=== PATIENT | male | born 1990 | race Two or more races ===

== ENCOUNTER 2020-01-17 22:01 | Inpatient (IN) | payer MEDICAID, OTHER ==
[~2020-01-17] VITALS: Ht 172.7 cm; Wt 84.6 kg
--- NOTE | 2020-01-17 22:10 | NUR ---
PT BIB HIS MOTHER WITH A C/O ABD PAIN AFTER EATING HEBREW FOOD AROUND 12PM. PT WAS NOT ABLE TO KEEP DOWN FOOD OR FLUIDS. PT WAS CONNECTED TO THE MONITOR AND CONTINUOUS PULSE OX.
[2020-01-17] MEDS ORDERED: METOCLOPRAMIDE HCL 10 MG/2 ML VIAL IV ONE (22:30)
[2020-01-17] MEDS ORDERED: IV NS 0.9% 1,000 ML BAG IV ONE ×2 (22:30→23:30)
[2020-01-17] MEDS ORDERED: diphenhydrAMINE HCL 50 MG/ML VIAL IV ONE (22:30)
[2020-01-17] MEDS ORDERED: diphenhydrAMINE HCL 50 MG/ML VIAL ONE (22:38)
[2020-01-17] MEDS ORDERED: METOCLOPRAMIDE HCL 10 MG/2 ML VIAL ONE (22:38)
--- NOTE | 2020-01-17 22:45 | NUR ---
BLOOD WAS DRAWN AND SENT TO LAB. IV SITE IS NOT WORKING. IV REMOVED.
[2020-01-17 22:53] LABS: BASOPHILS # (AUTO) 0.1 /CMM (0.0-0.2); BASOPHILS % (AUTO) 0.6 % (0.0-2.0); EOSINOPHILS % (AUTO) 0.1 % (0.0-6.0); HEMATOCRIT 46 % (39-51); HEMOGLOBIN 14.9 g/dL (13.5-17.5); LYMPHOCYTES # (AUTO) 1.2 /CMM (0.8-4.8); LYMPHOCYTES % (AUTO) 8.6 % (20.0-44.0); MEAN CORPUSCULAR HGB CONC 33 g/dl (31.0-36.0); MEAN CORPUSCULAR VOLUME 85 fL (80-96); MONOCYTES # (AUTO) 0.4 /CMM (0.1-1.30); MONOCYTES % (AUTO) 2.8 % (2.0-12.0); NEUTROPHILS # (AUTO) 12.1 /CMM (1.8-8.9); NEUTROPHILS % (AUTO) 87.9 % (43.0-81.0); PLATELET COUNT (AUTO) 320 /CMM (150-450); WHITE BLOOD COUNT (AUTO) 13.7 K/uL (4.3-11.0)
[2020-01-17 23:01] LABS: CALCIUM, SERUM 9.7 mg/dL (8.5-10.1); POTASSIUM 4.4 mmol/L (3.5-5.1)
[2020-01-17 23:07] LABS: ALBUMIN 4.6 g/dL (3.4-5.0); BILIRUBIN,DIRECT 0.1 mg/dL (0.0-0.2); BILIRUBIN,TOTAL 0.4 mg/dL (0.2-1.0); TOTAL PROTEIN, SERUM 9.1 g/dL (6.4-8.2)
--- NOTE | 2020-01-17 23:10 | NUR ---
IV STARTED IN RT HAND BY JAYLA RN/CHG
--- NOTE | 2020-01-18 00:30 | NUR ---
PT APPEARS TO BE SLEEPING SOUNDLY WITH NO S/S OF PAIN OR DISTRESS. PT IS SLIGHTLY TACHY WITH HR @ 103. WILL CONTINUE TO MONITOR THE PT.
--- NOTE | 2020-01-18 01:14 | NUR ---
PT APPEARS TO BE SLEEPING SOUNDLY. PT'S SLIGHTLY TACHY WITH HR AT 114 WITH OCCASIONALLY INCREASING TO 120. MD NOTIFIED.
[2020-01-18] MEDS ORDERED: ONDANSETRON HCL/PF 4 MG/2 ML VIAL ONE ×2 (01:29→04:53)
[2020-01-18] MEDS ORDERED: ONDANSETRON HCL/PF 4 MG/2 ML VIAL IV ONE ×2 (01:30→05:00)
--- NOTE | 2020-01-18 01:35 | NUR ---
PT WOKE UP AND VOMITTED. MD NOTIFIED AND NEW ORDERS WERE GIVEN.
--- NOTE | 2020-01-18 02:00 | NUR ---
URINE SAMPLE OBTAINED AND SENT TO LAB.
[2020-01-18 03:20] LABS: APPEARANCE,URINE CLEAR (CLEAR); BILIRUBIN,URINE NEGATIVE (NEGATIVE); BLOOD, URINE NEGATIVE Ery/uL (NEGATIVE); COLOR,URINE YELLOW (YELLOW); KETONES,URINE NEGATIVE (NEGATIVE); LEUKOCYTE ESTERASE ,URINE NEGATIVE (NEGATIVE); NITRITE, URINE NEGATIVE (NEGATIVE); PROTEIN,URINE NEGATIVE (NEGATIVE); UGLUCOSE NEGATIVE (NEGATIVE); UROBILINOGEN,URINE 0.2 EU/dL (0.2)
--- NOTE | 2020-01-18 04:59 | NUR ---
PT STARTED VOMITTING. NOTIFIED. NEW ORDERS GIVEN AND CARRIED OUT.
--- NOTE | 2020-01-18 05:22 | NUR ---
PT APPEARS TO BE RESTING COMFORTABLY.
--- NOTE | 2020-01-18 05:51 | NUR ---
CALLED PT'S MOTHER, PER HIS REQUEST, TO UPDATE HER RE: PT BEING ADMITTED.
--- NOTE | 2020-01-18 06:01 | NUR ---
COVID SWAB DONE AND SENT TO LAB.
--- NOTE | 2020-01-18 06:54 | NUR ---
REC'D NEG COVID RESULTS FROM LAB
--- NOTE | 2020-01-18 07:40 | NUR ---
CALLED FOR GPS BED.
--- NOTE | 2020-01-18 09:14 | NUR ---
NURSING SUP GAVE M/S BED 204-1.
--- NOTE | 2020-01-18 09:40 | NUR ---
REPORT GIVEN TO YOGESH RUDD FOR [facility].
--- NOTE | 2020-01-18 09:50 | NUR ---
MS RN NOTES PATIENT ARRIVED TO UNIT VIA GURNEY, WITH ACLS PROTOCOLS. PATIENT ALERT AND ORIENTED X 4. ON ROOM AIR WITH NO SIGNS OF RESPIRATORY DISTRESS AT THIS TIME, WITH EVEN NON-LABORED BREATHING AND NO SOB PRESENT AT THIS TIME. PATIENT DENIES PAIN OR DISCOMFORT AT THIS TIME. IV ACCESS INTACT AND PATENT ON RIGHT HAND 20 GAUGE. SKIN WARM AND DRY TO TOUCH. PROVIDED COMFORT MEASURES TO PATIENT. SAFETY PRECAUTIONS IMPLEMENTED WITH BED LOCKED, BILATERAL SIDE RAILS UP, BED IN THE LOWEST POSITION AND CALL LIGHT WITHIN EASY REACH OF THE PATIENT. WILL CONTINUE TO MONITOR PATIENT.
[2020-01-18] MEDS ORDERED: HYDROCODONE/APAP 5/325MG 1 EACH TABLET PO PRN (12:00)
[2020-01-18] MEDS ORDERED: MAGNESIUM HYDROXIDE 30 ML UDC PO PRN (12:00)
[2020-01-18] MEDS ORDERED: MAG HYDROX/AL HYDROX/SIMETH 30 ML UDC PO PRN (12:00)
[2020-01-18] MEDS ORDERED: MORPHINE SULFATE INJ 2 MG/ML DISP.SYRIN IV PRN (12:00)
[2020-01-18] MEDS ORDERED: ZOLPIDEM TARTRATE 5 MG TABLET PO PRN (12:00)
[2020-01-18] MEDS ORDERED: Z GUARD REMEDY 2 OZ OINT TP PRN (12:00)
[2020-01-18] MEDS ORDERED: ACETAMINOPHEN 325 MG TABLET PO PRN (12:00)
[2020-01-18] MEDS ORDERED: ONDANSETRON HCL/PF 4 MG/2 ML VIAL IVP PRN (12:00)
[2020-01-18] MEDS: IV D5/0.45 NACL 1,000 ML IV PRN ×2 (13:49→23:37)
[2020-01-18 16:00] VITALS: BP 133/78
--- NOTE | 2020-01-18 19:00 | NUR ---
MS RN NOTES PATIENT IN BED WATCHING TV. ON ROOM AIR WITH NO SIGNS OF RESPIRATORY DISTRESS WITH EVEN NON-LABORED BREATHING, AND WITH NO SOB NOTED. SKIN KEPT CLEAN AND DRY. IV ACCESS INTACT AND PATENT ON RIGHT HAND INFUSING D5 1/2 NORMAL SALINE AT 125ml/hr. PROVIDED COMFORT MEASURES TO PATIENT AND MET ALL OF PATIENT'S NEEDS. SAFETY PRECAUTIONS IMPLEMENTED WITH BED LOCKED, BILATERAL SIDE RAILS UP, BED IN THE LOWEST POSITION, AND CALL LIGHT WITHIN EASY REACH OF THE PATIENT. WILL ENDORSE PLAN OF CARE TO UPCOMING NIGHTSHIFT NURSE.
--- NOTE | 2020-01-18 19:15 | NUR ---
rn ms opening noted received patient in bed awake alert and oriented x 4, respirations even and unlabored with equal rise and fall of chest, denies any pain or discomfort at this time, no nausea or vomiting present at this time. iv site to right hand #20 g intact and patent, no redness, no infiltration present, ivf running as ordered, oriented to staff and call light and kept within reach, all needs attended at this time, will continue to monitor and attend to needs.
[2020-01-18 20:00] VITALS: BP 131/67
[2020-01-18 20:23] VITALS: BP 131/67
--- NOTE | 2020-01-19 05:17 | NUR ---
rn ms notes received call from lab for covid results NEGATIVE.
[2020-01-19 06:57] LABS: BASOPHILS # (AUTO) 0.1 /CMM (0.0-0.2); BASOPHILS % (AUTO) 1.1 % (0.0-2.0); EOSINOPHILS % (AUTO) 4.5 % (0.0-6.0); HEMATOCRIT 41 % (39-51); HEMOGLOBIN 13.3 g/dL (13.5-17.5); LYMPHOCYTES # (AUTO) 3.8 /CMM (0.8-4.8); LYMPHOCYTES % (AUTO) 49.1 % (20.0-44.0); MEAN CORPUSCULAR HGB CONC 33 g/dl (31.0-36.0); MEAN CORPUSCULAR VOLUME 84 fL (80-96); MONOCYTES # (AUTO) 0.6 /CMM (0.1-1.30); MONOCYTES % (AUTO) 7.5 % (2.0-12.0); NEUTROPHILS # (AUTO) 2.9 /CMM (1.8-8.9); NEUTROPHILS % (AUTO) 37.8 % (43.0-81.0); PLATELET COUNT (AUTO) 296 /CMM (150-450); RED BLOOD CELL COUNT(AUTO) 4.83 MIL/uL (4.5-6.0); WHITE BLOOD COUNT (AUTO) 7.7 K/uL (4.3-11.0)
[2020-01-19 06:59] LABS: ALBUMIN 3.7 g/dL (3.4-5.0); BILIRUBIN,DIRECT 0.1 mg/dL (0.0-0.2); BILIRUBIN,TOTAL 0.6 mg/dL (0.2-1.0); CALCIUM, SERUM 8.7 mg/dL (8.5-10.1); CREATININE 0.8 mg/dL (0.6-1.3); MAGNESIUM 2.1 mg/dL (1.8-2.4); PHOSPHORUS 3.6 mg/dL (2.5-4.9); POTASSIUM 3.4 mmol/L (3.5-5.1); TOTAL PROTEIN, SERUM 7.4 g/dL (6.4-8.2)
--- NOTE | 2020-01-19 07:03 | NUR ---
rn ms closing notes patient in bed sleeping easily arousable, alert and oriented x 4, respirations even and unlabored with equal rise and fall of chest, denies any pain or discomfort at this time, no nausea or vomiting present at this time no complaints of abdomen pain throughout shift. iv site to right hand #20 g intact and patent, no redness, no infiltration present, ivf running as ordered, call light kept within reach, all needs attended at this time, will continue to monitor and attend to needs and endorse to next shift.
[2020-01-19 08:00] VITALS: BP 139/73
--- NOTE | 2020-01-19 08:00 | NUR ---
RN NOTES RECEIVED PATIENT IN THE BED SLEEPING, AROUSE WHEN CALLED NAME OR TOUCHED, NO ACUTE RESPIRATORY DISTRESS, V/S STABLE. INFUSING D 51/2 NS AT 125 ML/HR INTACT. CALL LIGHT WITHIN TO REACH. CONTINUED MONITORING.
[2020-01-19] MEDS ORDERED: PANTOPRAZOLE 40 MG VIAL IV SCH (09:00)
--- NOTE | 2020-01-19 09:00 | NUR ---
RN NOTES PATIENT AWAKE , REFUSED PAIN, ADMINISTERED SCHEDULED MEDICATION, TOLERATED BREAKFAST 100 %, REFUSED PAIN, PATIENT USING BATHROOM. CALL LIGHT WITHIN TO REACH, CONTINUED MONITORING.
[2020-01-19] MEDS: IV D5/0.45 NACL 1,000 ML IV PRN (10:56)
[2020-01-19] MEDS ORDERED: POTASSIUM CHLORIDE 20 MEQ POWDER PACKET PO SCH (11:00)
--- NOTE | 2020-01-19 13:00 | NUR ---
RN NOTES SEEN PATIENT BY HOSPITALIST Dr SALINAS PATIENT WILL DISCHARGE HOME .
[2020-01-19 15:59] VITALS: BP 135/86
--- NOTE | 2020-01-19 17:10 | NUR ---
[employer] SUPERVISOR NOTES PATIENT DISCHARGE AT THIS TIME GOING HOME SELF CARE. MED RECONCILIATION AND DISCHARGE NOTES REVIEWED AND EXPLAINED TO THE PATIENT. PATIENT VERBALIZED UNDERSTANDING. PATIENT WILL FOLLOW PRIMARY MD. PATIENT SIGN PAPERWORK. BELONGING WITH HE PATIENT. ESCORTED PATIENT TO THE LOBBY FOR SAFETY. PATIENT MUTUEL CASHIER BY BROTHER PHONE # [phone].
== END 2020-01-19 17:15 | disposition home or self-care (01) | DRG 249 ==
LOC: ER 22:09 → MEDSG2 01-18 09:20
PROVIDERS: ADMIT Student in an Organized Health Care Education/Training Program; ATTEND Student in an Organized Health Care Education/Training Program
DX: A08.4 Viral intestinal infection, unspecified (principal); I49.9 Cardiac arrhythmia, unspecified; I44.30 Unspecified atrioventricular block; T45.0X5A Adverse effect of antiallergic and antiemetic drugs, initial encounter; Y92.009 Unspecified place in unspecified non-institutional (private) residence as the place of occurrence of the external cause; R74.0 Nonspecific elevation of levels of transaminase and lactic acid dehydrogenase [LDH]; D72.829 Elevated white blood cell count, unspecified
CPT/HCPCS: 36415; 80048-TC; 80061-TC; 80076-TC; 80305; 81000-TC; 83690-TC; 83735-TC; 84100-TC; 85025-TC; 87081-TC; C9113; G0378; J1200; J2405; J2765; J3490; J7030; J7042; U0003-CS

== ENCOUNTER 2020-03-25 18:20 | Inpatient (IN) | payer OTHER ==
[~2020-03-25] VITALS: Ht 172.7 cm; Wt 79.4 kg
[2020-03-25] MEDS ORDERED: ONDANSETRON HCL/PF 4 MG/2 ML VIAL IVP ONE (19:00)
[2020-03-25] MEDS ORDERED: IV NS 0.9% 1,000 ML BAG IV ONE ×2 (19:00→22:00)
[2020-03-25] MEDS ORDERED: KETOROLAC TROMETHAMINE INJ 30 MG/ML VIAL IV ONE (19:00)
[2020-03-25] MEDS ORDERED: KETOROLAC TROMETHAMINE INJ 30 MG/ML VIAL ONE (19:21)
[2020-03-25] MEDS ORDERED: ONDANSETRON HCL/PF 4 MG/2 ML VIAL ONE ×2 (19:21→21:14)
--- NOTE | 2020-03-25 19:28 | NUR ---
BIBSELF C/O NAUSEA AND VOMITING SINCE NOONTIME TODAY, ALSO C/O HEADACHE AND DIZZINESS. PT AAOX4, VSS. RR EVEN & UNLABORED. DENIES CP, SOB, DIZZINESS AT THIS TIME. PT SEEN & EVAL'D BY MARTÍNEZ TEJEDA. MEDICATED ORDERED, PT MARCO WELL. WILL CONT TO MONITOR.
[2020-03-25 19:34] LABS: BASOPHILS % (AUTO) 0.4 % (0.0-2.0); EOSINOPHILS % (AUTO) 0.1 % (0.0-6.0); HEMATOCRIT 47 % (39-51); HEMOGLOBIN 15.2 g/dL (13.5-17.5); LYMPHOCYTES % (AUTO) 8.5 % (20.0-44.0); MEAN CORPUSCULAR HGB CONC 32 g/dl (31.0-36.0); MEAN CORPUSCULAR VOLUME 85 fL (80-96); MONOCYTES # (AUTO) 0.3 /CMM (0.1-1.30); PLATELET COUNT (AUTO) 352 /CMM (150-450); RED BLOOD CELL COUNT(AUTO) 5.54 MIL/uL (4.5-6.0); WHITE BLOOD COUNT (AUTO) 11.4 K/uL (4.3-11.0)
[2020-03-25 19:42] LABS: CALCIUM, SERUM 9.6 mg/dL (8.5-10.1); CREATININE 0.9 mg/dL (0.6-1.3); POTASSIUM 4.1 mmol/L (3.5-5.1)
[2020-03-25 19:56] LABS: ALBUMIN 4.6 g/dL (3.4-5.0); BILIRUBIN,DIRECT 0.1 mg/dL (0.0-0.2); BILIRUBIN,TOTAL 0.3 mg/dL (0.2-1.0); TOTAL PROTEIN, SERUM 9.1 g/dL (6.4-8.2)
[2020-03-25] MEDS ORDERED: ONDANSETRON HCL/PF 4 MG/2 ML VIAL IV ONE (21:00)
--- NOTE | 2020-03-25 21:20 | NUR ---
MEDICATED FOR N/V, PT MARCO WELL. URINE COLLECTED & SENT TO LAB.
[2020-03-25 21:30] LABS: APPEARANCE,URINE Clear (CLEAR); BILIRUBIN,URINE Negative (NEGATIVE); BLOOD, URINE Trace-intact Ery/uL (NEGATIVE); COLOR,URINE Yellow (YELLOW); KETONES,URINE Negative (NEGATIVE); LEUKOCYTE ESTERASE ,URINE Negative (NEGATIVE); NITRITE, URINE Negative (NEGATIVE); PH,URINE 8.5 (5.0-8.0); PROTEIN,URINE 30 mg/dl (NEGATIVE); UGLUCOSE Negative (NEGATIVE); UROBILINOGEN,URINE 0.2 EU/dL (0.2)
[2020-03-25 22:06] LABS: BACTERIA,URINE Rare /HPF (None Seen); SQUAMOUS EPITHELIAL CELL,UR Few /HPF (None Seen); WBC,URINE NONE SEEN /HPF (0-3)
--- NOTE | 2020-03-25 23:22 | NUR ---
PT STILL C/O NAUSEA, MARTÍNEZ TEJEDA AWARE.
--- NOTE | 2020-03-25 23:32 | NUR ---
COVID TEST DONE & SENT TO LAB.
[2020-03-26] MEDS ORDERED: ONDANSETRON HCL/PF 4 MG/2 ML VIAL IVP PRN
--- NOTE | 2020-03-26 00:20 | NUR ---
PT AMBULATED TO THE RESTROOM
--- NOTE | 2020-03-26 00:46 | NUR ---
LAB CALLED REGARDING NEGATIVE COVID RESULT.
--- NOTE | 2020-03-26 02:08 | NUR ---
REPORT GIVEN TO YOGESH ARANDA FOR G[facility]
--- NOTE | 2020-03-26 02:15 | NUR ---
MS RN NOTES RECEIVED PT VIA [facility], PT WAS ABLE TO AMBULATE TO BED. A/O X4. STABLE ON RA, NO SOB/ ACUTE RESPIRATORY DISTRESS NOTED. IV IN R AC#20G IS PATENT AND INTACT. PT DENIES ANY PAIN. BED IS IN LOWEST LOCKED POSITION WITH SIDE RAILS UP X2, SEMI FOWLERS. CALL LIGHT IS WITHIN REACH. WILL CONTINUE TO MONITOR. VITALS ON ADMISSION: BP 152/92 HR 100 O2: 99% TEMP 97.5 RR 20 PAIN 0
[2020-03-26] MEDS: IV D5/0.45 NACL 1,000 ML IV PRN ×2 (02:37→13:27)
[2020-03-26 04:00] VITALS: BP 154/80
--- NOTE | 2020-03-26 06:37 | NUR ---
MS RN CLOSE NOTES PATIENT IS SITTING UP IN BED. A/O X4. ON RA, NO SOB/ ACUTE RESPIRATORY DISTRESS NOTED. IV IN R AC#20G IS PATENT AND INTACT RUNNING D5 1/2 NS @100MLS/HR. APPEARS COMFORTABLE/ NO COMPLAINTS OF PAIN AT THE MOMENT. BED IS IN LOWEST LOCKED POSITION WITH SIDE RAILS UP X2, SEMI FOWLERS. CALL LIGHT IS WITHIN REACH. WILL ENDORSE TO AM NURSE.
[2020-03-26 07:36] LABS: BASOPHILS % (AUTO) 0.3 % (0.0-2.0); HEMATOCRIT 45 % (39-51); HEMOGLOBIN 14.4 g/dL (13.5-17.5); LYMPHOCYTES # (AUTO) 1.9 /CMM (0.8-4.8); LYMPHOCYTES % (AUTO) 16.3 % (20.0-44.0); MEAN CORPUSCULAR HGB CONC 32 g/dl (31.0-36.0); MEAN CORPUSCULAR VOLUME 85 fL (80-96); MONOCYTES # (AUTO) 1.1 /CMM (0.1-1.30); MONOCYTES % (AUTO) 9.2 % (2.0-12.0); NEUTROPHILS # (AUTO) 8.5 /CMM (1.8-8.9); NEUTROPHILS % (AUTO) 74.2 % (43.0-81.0); PLATELET COUNT (AUTO) 334 /CMM (150-450); RED BLOOD CELL COUNT(AUTO) 5.23 MIL/uL (4.5-6.0); WHITE BLOOD COUNT (AUTO) 11.4 K/uL (4.3-11.0)
--- NOTE | 2020-03-26 07:46 | NUR ---
MS RN OPENING NOTES PATIENT IS SLEEPING IN BED WITH NO SIGNS OF DISTRESS IN ROOM AIR. IV L AC #20G INTACT RUNNING D5 1/2 NS AT 100 ML/HR. SAFETY MEASURES ARE APPLIED, BED IS IN LOCK AND LOW POSITION. SIDE RAILS UP X 2 FOR SAFETY. CALL LIGHT WITHIN REACH WILL CONTINUE TO MONITOR.
[2020-03-26 08:00] VITALS: BP 125/71
[2020-03-26 08:04] LABS: CALCIUM, SERUM 8.9 mg/dL (8.5-10.1); CREATININE 0.9 mg/dL (0.6-1.3); MAGNESIUM 2.1 mg/dL (1.8-2.4); PHOSPHORUS 3.8 mg/dL (2.5-4.9); POTASSIUM 3.2 mmol/L (3.5-5.1)
[2020-03-26] MEDS ORDERED: ONDA4TAB5 PO (08:04)
[2020-03-26] MEDS ORDERED: IBUP-1492 PO (08:04)
[2020-03-26] MEDS ORDERED: OMEP20CA15 PO (08:04)
[2020-03-26 08:15] LABS: THYROID STIMULATING HORMONE 1.141 uIU/mL (0.358-3.74)
[2020-03-26] MEDS ORDERED: PANTOPRAZOLE 40 MG VIAL IV SCH (09:00)
[2020-03-26] MEDS: POTASSIUM CL. PREMIX PERIPHER. 50 ML IV SCH ×4 (10:54→14:30)
[2020-03-26] MEDS ORDERED: POLYVINYL ALCOHOL 15 ML BOTTLE EACHEYE PRN (11:30)
[2020-03-26 16:00] VITALS: BP 142/75
--- NOTE | 2020-03-26 18:15 | NUR ---
DISCHARGE NOTE PATIENT VITALS ARE WITHIN NORMAL LIMIT. NO SIGNS OF DISTRESS IN ROOM AIR DENIED ANY SHORTNESS OF BREATH. NO SIGNS OF NAUSEA AND VOMITING. IV WAS REMOVED WITH NO SIGNS OF BLEEDING. DISCHARGE INSTRUCTIONS WERE EXPLAINED AND HE VERBALLY UNDERSTOOD TEACH BACK. BELONGING LIST WAS COMPLETED AND SIGNED. PATIENT LEFT VIA AMBULATORY TO THE LOBBY WITH STEADY GAIT ACCOMPANIED BY ME . GOT PICKED UP BY PERSONAL VEHICLE.
== END 2020-03-26 18:15 | disposition home or self-care (01) | DRG 241 ==
LOC: ER 18:25 → MED 03-26 01:53
PROVIDERS: ATTEND Nurse Practitioner Acute Care
DX: K29.70 Gastritis, unspecified, without bleeding (principal); D72.829 Elevated white blood cell count, unspecified; E86.0 Dehydration; E87.6 Hypokalemia
CPT/HCPCS: 36415; 80048-TC; 80061-TC; 80076-TC; 80305; 81000-TC; 83690-TC; 83735-TC; 84100-TC; 84443-TC; 85025-TC; 87081-TC; C9113; C9803-CS; G0378; J1885; J2405; J3480; J3490; J7030; J7050

== ENCOUNTER 2020-03-29 21:12 | Emergency (ER) | payer OTHER ==
[~2020-03-29] VITALS: Ht 172.7 cm; Wt 72.6 kg
[~2020-03-29 21:12] MED LIST: OMEP20CA15 PO; ONDA4TAB5 PO
--- NOTE | 2020-03-29 21:52 | NUR ---
PT AAOX4. BIBSELF C/O VOMITING. HX HIATAL HERNIA. PT PLACED IN BED 11 ON MONITOR AND PULSE OX. LINE INTIIATED LW 20G, BLOOD SENT TO LAB.
[2020-03-29] MEDS ORDERED: ONDANSETRON HCL/PF 4 MG/2 ML VIAL ONE (22:20)
[2020-03-29] MEDS ORDERED: IV NS 0.9% 1,000 ML BAG IV ONE (22:30)
[2020-03-29] MEDS ORDERED: ONDANSETRON HCL/PF 4 MG/2 ML VIAL IVP ONE (22:30)
[2020-03-29 22:45] LABS: BASOPHILS % (AUTO) 0.4 % (0.0-2.0); EOSINOPHILS % (AUTO) 0.6 % (0.0-6.0); HEMATOCRIT 46 % (39-51); LYMPHOCYTES # (AUTO) 2.6 /CMM (0.8-4.8); LYMPHOCYTES % (AUTO) 25.4 % (20.0-44.0); MEAN CORPUSCULAR HGB CONC 33 g/dl (31.0-36.0); MEAN CORPUSCULAR VOLUME 85 fL (80-96); MONOCYTES # (AUTO) 0.8 /CMM (0.1-1.30); NEUTROPHILS # (AUTO) 6.7 /CMM (1.8-8.9); NEUTROPHILS % (AUTO) 65.6 % (43.0-81.0); PLATELET COUNT (AUTO) 344 /CMM (150-450); RED BLOOD CELL COUNT(AUTO) 5.39 MIL/uL (4.5-6.0); WHITE BLOOD COUNT (AUTO) 10.2 K/uL (4.3-11.0)
[2020-03-29 22:46] LABS: APPEARANCE,URINE Clear (CLEAR); BILIRUBIN,URINE Negative (NEGATIVE); BLOOD, URINE Negative Ery/uL (NEGATIVE); COLOR,URINE Yellow (YELLOW); KETONES,URINE Negative (NEGATIVE); LEUKOCYTE ESTERASE ,URINE Negative (NEGATIVE); NITRITE, URINE Negative (NEGATIVE); PH,URINE 6.5 (5.0-8.0); PROTEIN,URINE Negative (NEGATIVE); UGLUCOSE Negative (NEGATIVE); UROBILINOGEN,URINE 0.2 EU/dL (0.2)
[2020-03-29 22:54] LABS: CALCIUM, SERUM 9.3 mg/dL (8.5-10.1); CREATININE 0.9 mg/dL (0.6-1.3); POTASSIUM 3.8 mmol/L (3.5-5.1)
[2020-03-29 23:00] LABS: ALBUMIN 4.2 g/dL (3.4-5.0); BILIRUBIN,DIRECT 0.1 mg/dL (0.0-0.2); BILIRUBIN,TOTAL 0.6 mg/dL (0.2-1.0); TOTAL PROTEIN, SERUM 8.4 g/dL (6.4-8.2)
--- NOTE | 2020-03-29 23:23 | NUR ---
Patient discharged to home in stable condition. Written and verbal after care instructions given. Patient verbalizes understanding of instruction and RX. IV removed. Catheter intact and site benign. Pressure and 4x4 applied to site. No bleeding noted.
[2020-03-29 23:24] VITALS: BP 111/75
== END 2020-03-29 23:25 | disposition home or self-care (01) ==
LOC: ER 21:14
DX: K29.60 Other gastritis without bleeding (principal); R11.2 Nausea with vomiting, unspecified; Z98.890 Other specified postprocedural states; Z79.899 Other long term (current) drug therapy
CPT/HCPCS: 36415; 80048; 80076; 80305; 81001; 83690; 85025; 96361; 96374; 99283; J2405; J7030; 81000-TC

== ENCOUNTER 2020-07-09 20:15 | Emergency (ER) | payer OTHER ==
[~2020-07-09] VITALS: Ht 172.7 cm; Wt 70.3 kg
[2020-07-09 20:58] LABS: BASOPHILS # (AUTO) 0.1 /CMM (0.0-0.2); BASOPHILS % (AUTO) 0.7 % (0.0-2.0); EOSINOPHILS % (AUTO) 0.4 % (0.0-6.0); HEMATOCRIT 47 % (39-51); HEMOGLOBIN 15.2 g/dL (13.5-17.5); LYMPHOCYTES # (AUTO) 1.2 /CMM (0.8-4.8); LYMPHOCYTES % (AUTO) 10.3 % (20.0-44.0); MEAN CORPUSCULAR HGB CONC 33 g/dl (31.0-36.0); MEAN CORPUSCULAR VOLUME 85 fL (80-96); MONOCYTES # (AUTO) 0.3 /CMM (0.1-1.30); MONOCYTES % (AUTO) 2.6 % (2.0-12.0); NEUTROPHILS # (AUTO) 9.6 /CMM (1.8-8.9); PLATELET COUNT (AUTO) 385 /CMM (150-450); RED BLOOD CELL COUNT(AUTO) 5.51 MIL/uL (4.5-6.0); WHITE BLOOD COUNT (AUTO) 11.2 K/uL (4.3-11.0)
[2020-07-09] MEDS ORDERED: FAMOTIDINE/PF INJ 20 MG/2 ML VIAL IV ONE ×2 (20:58→21:00)
[2020-07-09] MEDS ORDERED: ONDANSETRON HCL/PF 4 MG/2 ML VIAL ONE (20:58)
[2020-07-09] MEDS ORDERED: ONDANSETRON HCL/PF 4 MG/2 ML VIAL IVP ONE (21:00)
[2020-07-09] MEDS ORDERED: IV NS 0.9% 1,000 ML BAG IV ONE (21:00)
[2020-07-09 21:26] LABS: ALBUMIN 4.5 g/dL (3.4-5.0); BILIRUBIN,DIRECT 0.1 mg/dL (0.0-0.2); BILIRUBIN,TOTAL 0.4 mg/dL (0.2-1.0); CALCIUM, SERUM 9.3 mg/dL (8.5-10.1); CREATININE 0.8 mg/dL (0.6-1.3); POTASSIUM 4.1 mmol/L (3.5-5.1); TOTAL PROTEIN, SERUM 9.2 g/dL (6.4-8.2)
[2020-07-09 21:58] LABS: BILIRUBIN,URINE Negative (NEGATIVE); COLOR,URINE YELLOW (YELLOW); LEUKOCYTE ESTERASE ,URINE Negative (NEGATIVE); NITRITE, URINE Negative (NEGATIVE); PH,URINE 8.5 (5.0-8.0); PROTEIN,URINE 100 mg/dl (NEGATIVE); UGLUCOSE Negative (NEGATIVE); UROBILINOGEN,URINE 0.2 EU/dL (0.2)
[2020-07-09 22:03] LABS: BACTERIA,URINE Rare /HPF (None Seen); RBC,URINE NONE SEEN /HPF (0-2); SQUAMOUS EPITHELIAL CELL,UR Few /HPF (None Seen); WBC,URINE NONE SEEN /HPF (0-3)
--- NOTE | 2020-07-09 22:15 | NUR ---
IV removed. Catheter intact and site benign. Pressure and 4x4 applied to site. No bleeding noted. Patient discharged to home in stable condition. Written and verbal after care instructions given. Patient verbalizes understanding of instruction. ambulatory with a steady gait
[2020-07-09 22:16] VITALS: BP 127/78
== END 2020-07-09 22:16 | disposition home or self-care (01) ==
LOC: ER 20:24
DX: K29.70 Gastritis, unspecified, without bleeding (principal); F14.90 Cocaine use, unspecified, uncomplicated; R11.2 Nausea with vomiting, unspecified; R19.7 Diarrhea, unspecified; Z20.822 Contact with and (suspected) exposure to COVID-19; D72.829 Elevated white blood cell count, unspecified; K44.9 Diaphragmatic hernia without obstruction or gangrene
CPT/HCPCS: 36415; 80048; 80076; 80307; 81001; 83690; 85025; 96361; 96374; 96375; 99284; C9803; J2405; J3490; J7030; U0003

== ENCOUNTER 2020-07-11 21:29 | Inpatient (IN) | payer OTHER ==
[~2020-07-11] VITALS: Ht 172.7 cm; Wt 68.0 kg
--- NOTE | 2020-07-11 22:52 | NUR ---
PT BIBSELF C/O HEMATEMESIS X3 DAYS. PT STATED HE NOTICED BLOOD IN HIS VOMIT TODAY. PLACED IN BED 4 ON MONITOR AND PULSE OX. LINE ESTABLISHED IN LAC 18G, BLOOD COLLECTED, SENT TO LAB. AWAITING MD ORDERS.
[2020-07-11] MEDS ORDERED: PANTOPRAZOLE 40 MG VIAL ONE (23:13)
[2020-07-11] MEDS ORDERED: ONDANSETRON HCL/PF 4 MG/2 ML VIAL ONE (23:13)
[2020-07-11] MEDS ORDERED: IV NS 0.9% 1,000 ML BAG IV ONE (23:30)
[2020-07-11] MEDS ORDERED: PANTOPRAZOLE 40 MG VIAL IV ONE (23:30)
[2020-07-11] MEDS ORDERED: ONDANSETRON HCL/PF 4 MG/2 ML VIAL IVP ONE (23:30)
[2020-07-11 23:37] LABS: BASOPHILS # (AUTO) 0.1 /CMM (0.0-0.2); BASOPHILS % (AUTO) 0.5 % (0.0-2.0); EOSINOPHILS % (AUTO) 0.3 % (0.0-6.0); HEMATOCRIT 45 % (39-51); HEMOGLOBIN 14.9 g/dL (13.5-17.5); LYMPHOCYTES # (AUTO) 1.2 /CMM (0.8-4.8); LYMPHOCYTES % (AUTO) 10.9 % (20.0-44.0); MEAN CORPUSCULAR HGB CONC 33 g/dl (31.0-36.0); MEAN CORPUSCULAR VOLUME 85 fL (80-96); MONOCYTES # (AUTO) 0.4 /CMM (0.1-1.30); MONOCYTES % (AUTO) 3.3 % (2.0-12.0); NEUTROPHILS # (AUTO) 9.4 /CMM (1.8-8.9); PLATELET COUNT (AUTO) 354 /CMM (150-450); RED BLOOD CELL COUNT(AUTO) 5.37 MIL/uL (4.5-6.0); WHITE BLOOD COUNT (AUTO) 11.1 K/uL (4.3-11.0)
--- NOTE | 2020-07-11 23:41 | NUR ---
CALLED LAB FOR COVID SWAB
[2020-07-11 23:56] LABS: ALBUMIN 4.2 g/dL (3.4-5.0); BILIRUBIN,DIRECT 0.2 mg/dL (0.0-0.2); BILIRUBIN,TOTAL 0.5 mg/dL (0.2-1.0); CALCIUM, SERUM 9.1 mg/dL (8.5-10.1); CREATININE 0.9 mg/dL (0.6-1.3); TOTAL PROTEIN, SERUM 8.6 g/dL (6.4-8.2)
[2020-07-12 00:07] LABS: BILIRUBIN,URINE NEGATIVE (NEGATIVE); COLOR,URINE YELLOW (YELLOW); LEUKOCYTE ESTERASE ,URINE NEGATIVE (NEGATIVE); NITRITE, URINE NEGATIVE (NEGATIVE); PH,URINE 8.5 (5.0-8.0); PROTEIN,URINE NEGATIVE (NEGATIVE); UGLUCOSE NEGATIVE (NEGATIVE)
[2020-07-12 00:16] LABS: BACTERIA,URINE 1+ /HPF (None Seen); MUCUS,URINE Few /LPF (None Seen); RBC,URINE 0-2 /HPF (0-2); SQUAMOUS EPITHELIAL CELL,UR Few /HPF (None Seen); URINE AMORPHOUS PHOSPHATES Many /HPF (None Seen); WBC,URINE 0-2 /HPF (0-3)
[2020-07-12] MEDS ORDERED: MAGNESIUM HYDROXIDE 30 ML UDC PO PRN (01:00)
[2020-07-12] MEDS ORDERED: Z GUARD REMEDY 2 OZ OINT TP PRN (01:00)
[2020-07-12] MEDS ORDERED: MAG HYDROX/AL HYDROX/SIMETH 30 ML UDC PO PRN (01:00)
[2020-07-12] MEDS ORDERED: TEMAZEPAM 15 MG CAPSULE PO PRN (01:00)
[2020-07-12] MEDS ORDERED: ACETAMINOPHEN 325 MG TABLET PO PRN (01:00)
[2020-07-12] MEDS: PANTOPRAZOLE 40 MG VIAL IV SCH ×3 (01:00→21:24)
[2020-07-12] MEDS ORDERED: ONDANSETRON HCL/PF 4 MG/2 ML VIAL IVP PRN (01:00)
[2020-07-12] MEDS ORDERED: LORAZEPAM INJ 2 MG/ML VIAL IV PRN (01:00)
[2020-07-12] MEDS ORDERED: MORPHINE SULFATE INJ 2 MG/ML DISP.SYRIN IV PRN (01:00)
[2020-07-12] MEDS: IV NS 0.9% 1,000 ML IV PRN ×2 (02:20→09:00)
--- NOTE | 2020-07-12 02:20 | NUR ---
PT ASLEEP, VSS.
--- NOTE | 2020-07-12 04:22 | NUR ---
PT REMAINS ASLEEP, VITALS STABLE.
--- NOTE | 2020-07-12 07:22 | NUR ---
REPORT GIVEN TO DEBRA ZUÑIGA FOR [facility]
--- NOTE | 2020-07-12 07:29 | NUR ---
RECEIVED REPORT FROM YOGESH MARTINS. PT IS ASLEEP ON BED EASILY AROUSABLE, NOT IN RESPIRATORY DISTRESS, VS STABLE, KEPT RESTED AND COMFORTABLE. AWAITING ROOM FOR TRANSFER.
[2020-07-12] MEDS: HYDROCODONE/APAP 5/325MG TABLET PO PRN (08:00)
[2020-07-12] MEDS ORDERED: HYDROCODONE/APAP 5/325MG TABLET ONE (08:01)
[2020-07-12] MEDS ORDERED: PANTOPRAZOLE 40 MG VIAL ONE ×2 (09:18→21:20)
--- NOTE | 2020-07-12 13:30 | NUR ---
pt seen by dr harry per dr. harry advance diet as tolerated.
--- NOTE | 2020-07-12 13:45 | NUR ---
pt tolerate lunch well. ate 80% of clear liquid diet provided. will advance diet to soft diet for dinner
--- NOTE | 2020-07-12 21:54 | NUR ---
PT AMBULATED TO THE RESTROOM, VSS.
--- NOTE | 2020-07-13 04:07 | NUR ---
PT NOTED ASLEEP, REMAINS ON MONITOR, AND PULSE OX.VSS.
[2020-07-13 04:41] LABS: BASOPHILS # (AUTO) 0.1 /CMM (0.0-0.2); BASOPHILS % (AUTO) 0.9 % (0.0-2.0); EOSINOPHILS % (AUTO) 2.8 % (0.0-6.0); HEMATOCRIT 41 % (39-51); HEMOGLOBIN 13.6 g/dL (13.5-17.5); LYMPHOCYTES # (AUTO) 4.2 /CMM (0.8-4.8); LYMPHOCYTES % (AUTO) 49.8 % (20.0-44.0); MEAN CORPUSCULAR HGB CONC 33 g/dl (31.0-36.0); MEAN CORPUSCULAR VOLUME 84 fL (80-96); MONOCYTES # (AUTO) 0.7 /CMM (0.1-1.30); MONOCYTES % (AUTO) 8.6 % (2.0-12.0); NEUTROPHILS # (AUTO) 3.2 /CMM (1.8-8.9); NEUTROPHILS % (AUTO) 37.9 % (43.0-81.0); PLATELET COUNT (AUTO) 314 /CMM (150-450); WHITE BLOOD COUNT (AUTO) 8.5 K/uL (4.3-11.0)
[2020-07-13 04:44] LABS: CALCIUM, SERUM 8.5 mg/dL (8.5-10.1); CREATININE 0.8 mg/dL (0.6-1.3); MAGNESIUM 2.1 mg/dL (1.8-2.4); PHOSPHORUS 3.8 mg/dL (2.5-4.9)
[2020-07-13] MEDS: IV NS 0.9% 1,000 ML IV PRN (07:42)
[2020-07-13] MEDS ORDERED: PANTOPRAZOLE 40 MG VIAL ONE (07:53)
[2020-07-13] MEDS: HYDROCODONE/APAP 5/325MG TABLET PO PRN (07:55)
[2020-07-13] MEDS ORDERED: HYDROCODONE/APAP 5/325MG TABLET ONE (08:07)
[2020-07-13] MEDS: PANTOPRAZOLE 40 MG VIAL IV SCH (08:39)
--- NOTE | 2020-07-13 09:26 | NUR ---
pt tolerating regular food. denies n/v per dr. piero boss to go home.
[2020-07-13 10:01] VITALS: BP 128/71
== END 2020-07-13 10:03 | disposition home or self-care (01) | DRG 241 ==
LOC: ER 21:31 → OBSER 23:48 → OBSVTOIN 23:48 → TRANSITION 23:49
PROVIDERS: ADMIT Nurse Practitioner Acute Care
DX: K29.70 Gastritis, unspecified, without bleeding (principal); K22.6 Gastro-esophageal laceration-hemorrhage syndrome; D72.829 Elevated white blood cell count, unspecified; F17.200 Nicotine dependence, unspecified, uncomplicated; Z72.89 Other problems related to lifestyle; Z20.822 Contact with and (suspected) exposure to COVID-19
CPT/HCPCS: 36415; 80048-TC; 80076-TC; 81001; 83690-TC; 83735-TC; 84100-TC; 85025-TC; 86850-TC; 87081-TC; C9113; G0378; J2060; J2270; J2405; J7030

== ENCOUNTER 2020-10-23 09:26 | Emergency (ER) | payer OTHER ==
[~2020-10-23] VITALS: Ht 175.3 cm; Wt 72.6 kg
--- NOTE | 2020-10-23 09:50 | NUR ---
BIB GIRLFRIEND C/O CHEST PAIN NON RADIATING STARTED LAST NIGHT AND VOMITING FOR 2 DAYS. RATES PAIN 6/10. IN ROOM AIR AND DENIES SOB. RESPIRATION REGULAR AND UNLABORED. ATTACHED ON A MONITOR. WILL CONTINUE TO MONITOR THE PATIENT.
[2020-10-23] MEDS: HALOPERIDOL LACTATE INJ 5 MG/ML VIAL IM ONE (10:05)
[2020-10-23] MEDS ORDERED: HALOPERIDOL LACTATE INJ 5 MG/ML VIAL ONE (10:06)
[2020-10-23] MEDS ORDERED: ONDANSETRON HCL/PF 4 MG/2 ML VIAL ONE (10:07)
[2020-10-23] MEDS: ONDANSETRON HCL/PF 4 MG/2 ML VIAL IVP ONE (10:17)
[2020-10-23] MEDS: IV NS 0.9% 1,000 ML BAG IV ONE (10:17)
[2020-10-23 10:39] LABS: BASOPHILS # (AUTO) 0.1 /CMM (0.0-0.2); BASOPHILS % (AUTO) 0.4 % (0.0-2.0); EOSINOPHILS % (AUTO) 0.1 % (0.0-6.0); HEMATOCRIT 46 % (39-51); HEMOGLOBIN 15.5 g/dL (13.5-17.5); LYMPHOCYTES # (AUTO) 1.3 /CMM (0.8-4.8); LYMPHOCYTES % (AUTO) 9.1 % (20.0-44.0); MEAN CORPUSCULAR HGB CONC 33 g/dl (31.0-36.0); MEAN CORPUSCULAR VOLUME 83 fL (80-96); MONOCYTES # (AUTO) 1.1 /CMM (0.1-1.30); MONOCYTES % (AUTO) 7.4 % (2.0-12.0); NEUTROPHILS # (AUTO) 12.2 /CMM (1.8-8.9); PLATELET COUNT (AUTO) 314 /CMM (150-450); RED BLOOD CELL COUNT(AUTO) 5.58 MIL/uL (4.5-6.0); WHITE BLOOD COUNT (AUTO) 14.6 K/uL (4.3-11.0)
[2020-10-23 10:49] LABS: CALCIUM, SERUM 8.8 mg/dL (8.5-10.1); CREATININE 0.9 mg/dL (0.6-1.3); POTASSIUM 3.3 mmol/L (3.5-5.1)
[2020-10-23 10:55] LABS: ALBUMIN 4.3 g/dL (3.4-5.0); BILIRUBIN,DIRECT 0.1 mg/dL (0.0-0.2); BILIRUBIN,TOTAL 0.7 mg/dL (0.2-1.0); TOTAL PROTEIN, SERUM 9.1 g/dL (6.4-8.2)
--- NOTE | 2020-10-23 11:11 | NUR ---
'S NAME [facility] PHONE # [phone]
[2020-10-23] MEDS ORDERED: ONDA4TAB5 PO (11:29)
--- NOTE | 2020-10-23 12:19 | NUR ---
Patient discharged to home in stable condition. Written and verbal after care instructions given. Patient verbalizes understanding of instruction. The patient left ER in stable condition.
[2020-10-23 12:21] VITALS: BP 138/76
== END 2020-10-23 12:21 | disposition home or self-care (01) ==
LOC: ER 09:40
DX: D72.829 Elevated white blood cell count, unspecified (principal); R11.2 Nausea with vomiting, unspecified; F17.200 Nicotine dependence, unspecified, uncomplicated; Z98.890 Other specified postprocedural states; Z79.899 Other long term (current) drug therapy
CPT/HCPCS: 36415; 71045; 80048; 80076; 83690; 85025; 93005; 96361; 96372; 96374; 99285; J1630; J2405; J7030

== ENCOUNTER 2021-09-10 12:39 | Emergency (ER) | payer OTHER ==
[~2021-09-10] VITALS: Ht 175.3 cm; Wt 74.8 kg
--- NOTE | 2021-09-10 12:39 | NUR ---
PT BIB SELF C/O FEVER, NAUSEA AND VOMINTIONG UNABLE TO KEEP FOOD IN X 4 DAYS. [employer]LE HAND DEVELOPER. PT IS AAOX4, NOT IN RESPIRATORY DISTRESS, V/S STABLE, KEPT RESTED AND COMFORTABLE. WILL CONTINUE TO MONITOR.
--- NOTE | 2021-09-10 14:32 | NUR ---
PT SEEN AND EXAMINED BY .
[2021-09-10] MEDS ORDERED: PANTOPRAZOLE 40 MG VIAL ONE (14:44)
[2021-09-10] MEDS ORDERED: ONDANSETRON HCL/PF 4 MG/2 ML VIAL ONE (14:44)
[2021-09-10] MEDS ORDERED: PANTOPRAZOLE 40 MG VIAL IV ONE (15:00)
[2021-09-10] MEDS ORDERED: ONDANSETRON HCL/PF 4 MG/2 ML VIAL IVP ONE (15:00)
[2021-09-10] MEDS ORDERED: IV NS 0.9% 1,000 ML BAG IV ONE (15:00)
--- NOTE | 2021-09-10 15:24 | NUR ---
MID LINE RN AT BEDSIDE.
[2021-09-10 15:49] LABS: BASOPHILS % (AUTO) 0.3 % (0.0-2.0); EOSINOPHILS % (AUTO) 0.6 % (0.0-6.0); HEMATOCRIT 46 % (39-51); HEMOGLOBIN 15.4 g/dL (13.5-17.5); LYMPHOCYTES # (AUTO) 2.1 K/uL (0.8-4.8); MEAN CORPUSCULAR HGB CONC 33 g/dl (31.0-36.0); MEAN CORPUSCULAR VOLUME 82 fL (80-96); MONOCYTES # (AUTO) 0.6 K/uL (0.1-1.30); MONOCYTES % (AUTO) 5.4 % (2.0-12.0); NEUTROPHILS # (AUTO) 8.1 K/uL (1.8-8.9); NEUTROPHILS % (AUTO) 74.7 % (43.0-81.0); RED BLOOD CELL COUNT(AUTO) 5.61 MIL/uL (4.5-6.0); WHITE BLOOD COUNT (AUTO) 10.8 K/uL (4.3-11.0)
[2021-09-10 16:04] LABS: ALBUMIN 4.6 g/dL (3.4-5.0); BILIRUBIN,DIRECT 0.1 mg/dL (0.0-0.2); BILIRUBIN,TOTAL 0.4 mg/dL (0.2-1.0); CALCIUM, SERUM 9.4 mg/dL (8.5-10.1); CREATININE 0.9 mg/dL (0.6-1.3); POTASSIUM 4.2 mmol/L (3.5-5.1); TOTAL PROTEIN, SERUM 9.7 g/dL (6.4-8.2)
[2021-09-10 16:20] LABS: PLATELET COUNT (AUTO) 393 K/uL (150-450)
[2021-09-10] MEDS ORDERED: OMEP40CA21 PO (16:45)
[2021-09-10] MEDS ORDERED: ONDA-97 PO (16:45)
[2021-09-10 17:05] VITALS: BP 118/68
--- NOTE | 2021-09-10 17:05 | NUR ---
IV removed. Catheter intact and site benign. Pressure and 4x4 applied to site. No bleeding noted. Patient discharged to home in stable condition. Written and verbal after care instructions given. Patient verbalizes understanding of instruction.
== END 2021-09-10 17:06 | disposition home or self-care (01) ==
LOC: ER 12:43
DX: K29.70 Gastritis, unspecified, without bleeding (principal); F17.200 Nicotine dependence, unspecified, uncomplicated; Z98.890 Other specified postprocedural states; Z79.899 Other long term (current) drug therapy
CPT/HCPCS: 36415; 76705; 80048; 80076; 83690; 85025; 96361; 96374; 96375; 99285; 99406; C9113; J2405; J7030

== ENCOUNTER 2021-09-11 15:32 | Emergency (ER) | payer OTHER ==
[~2021-09-11] VITALS: Ht 175.3 cm; Wt 74.8 kg
[~2021-09-11 15:32] MED LIST changes: +OMEP40CA21 PO; +ONDA-97 PO
--- NOTE | 2021-09-11 15:40 | NUR ---
TO ER BED 11. BIB SELF C/O L SIDED ABDOMINAL PAIN, NAUSEA AND VOMITING. SEEN HERE YESTERDAY FOR SAME COMPLAINT.
[2021-09-11] MEDS ORDERED: ONDANSETRON 4 MG TAB.RAPDIS PO ONE (16:00)
[2021-09-11] MEDS ORDERED: MECLIZINE HCL 12.5 MG TABLET PO ONE (16:00)
[2021-09-11] MEDS ORDERED: ONDANSETRON HCL/PF 4 MG/2 ML VIAL ONE (16:03)
[2021-09-11] MEDS ORDERED: MECLIZINE HCL 25 MG TABLET ONE (16:03)
[2021-09-11] MEDS ORDERED: ONDANSETRON 4 MG TAB.RAPDIS ONE (16:05)
[2021-09-11 16:43] LABS: BASOPHILS % (AUTO) 0.3 % (0.0-2.0); EOSINOPHILS % (AUTO) 1.6 % (0.0-6.0); HEMATOCRIT 44 % (39-51); HEMOGLOBIN 14.5 g/dL (13.5-17.5); LYMPHOCYTES # (AUTO) 1.8 K/uL (0.8-4.8); MEAN CORPUSCULAR HGB CONC 33 g/dl (31.0-36.0); MEAN CORPUSCULAR VOLUME 82 fL (80-96); MONOCYTES # (AUTO) 0.5 K/uL (0.1-1.30); MONOCYTES % (AUTO) 4.5 % (2.0-12.0); NEUTROPHILS # (AUTO) 7.7 K/uL (1.8-8.9); NEUTROPHILS % (AUTO) 75.6 % (43.0-81.0); PLATELET COUNT (AUTO) 352 K/uL (150-450); RED BLOOD CELL COUNT(AUTO) 5.38 MIL/uL (4.5-6.0); WHITE BLOOD COUNT (AUTO) 10.2 K/uL (4.3-11.0)
[2021-09-11 16:54] LABS: CALCIUM, SERUM 8.8 mg/dL (8.5-10.1); CREATININE 0.9 mg/dL (0.6-1.3); POTASSIUM 3.8 mmol/L (3.5-5.1)
[2021-09-11 18:46] VITALS: BP 119/83
--- NOTE | 2021-09-11 18:46 | NUR ---
Patient discharged to home in stable condition. Written and verbal after care instructions given. Patient verbalizes understanding of instruction.
== END 2021-09-11 18:47 | disposition home or self-care (01) ==
LOC: ER 15:33
DX: R42 Dizziness and giddiness (principal); F17.200 Nicotine dependence, unspecified, uncomplicated; Z98.890 Other specified postprocedural states; Z79.899 Other long term (current) drug therapy
CPT/HCPCS: 36415; 80048; 85025; 93005; 99284; J8597; Q0162; J2405

== ENCOUNTER 2024-05-11 09:30 | Emergency (ER) | payer MEDICAID, OTHER ==
[~2024-05-11] VITALS: Ht 172.7 cm; Wt 77.1 kg
[2024-05-11] MEDS ORDERED: ONDANSETRON HCL/PF 4 MG/2 ML VIAL ONE (09:49)
[2024-05-11] MEDS: IV NS 0.9% 1,000 ML BAG IV ONE (10:00)
[2024-05-11] MEDS: ONDANSETRON HCL/PF 4 MG/2 ML VIAL IVP ONE (10:01)
[2024-05-11 10:05] LABS: BASOPHILS # (AUTO) 0.1 K/uL (0.0-0.2); BASOPHILS % (AUTO) 1.2 % (0.0-2.0); EOSINOPHILS # (AUTO) 0.6 K/uL (0.0-0.7); EOSINOPHILS % (AUTO) 8.1 % (0.0-6.0); HEMATOCRIT 42 % (39-51); HEMOGLOBIN 13.7 g/dL (13.5-17.5); LYMPHOCYTES # (AUTO) 3.2 K/uL (0.8-4.8); MEAN CORPUSCULAR HEMOGLOBIN 27 PG (26.0-33.0); MEAN CORPUSCULAR HGB CONC 32 g/dl (31.0-36.0); MEAN CORPUSCULAR VOLUME 84 fL (80-96); MONOCYTES # (AUTO) 0.6 K/uL (0.1-1.30); MONOCYTES % (AUTO) 9.1 % (2.0-12.0); NEUTROPHILS # (AUTO) 2.4 K/uL (1.8-8.9); NEUTROPHILS % (AUTO) 35.6 % (43.0-81.0); PLATELET COUNT (AUTO) 313 K/uL (150-450); RED BLOOD CELL COUNT(AUTO) 5.05 MIL/uL (4.5-6.0); RED CELL DISTRIBUTION WIDTH 14.5 % (11.5-15.0); WHITE BLOOD COUNT (AUTO) 6.9 K/uL (4.3-11.0)
[2024-05-11 10:18] LABS: ALBUMIN 3.9 g/dL (3.4-5.0); BILIRUBIN,TOTAL 0.3 mg/dL (0.2-1.0); CALCIUM, SERUM 8.6 mg/dL (8.5-10.1); CREATININE 0.7 mg/dL (0.6-1.3); POTASSIUM 4.8 mmol/L (3.5-5.1); TOTAL PROTEIN, SERUM 8.1 g/dL (6.4-8.2)
[2024-05-11] MEDS ORDERED: MORPHINE SULFATE INJ 4 MG/ML DISP.SYRIN ONE (10:35)
[2024-05-11] MEDS: MORPHINE SULFATE INJ 2 MG/ML DISP.SYRIN IV ONE (10:44)
[2024-05-11] MEDS ORDERED: IBUP-1955 PO (11:16)
[2024-05-11] MEDS ORDERED: ONDA4TAB5 PO (11:16)
[2024-05-11 11:36] VITALS: BP 148/100; TEMP 97.5; O2SAT 100
[2024-05-11 12:00] LABS: APPEARANCE,URINE CLEAR (CLEAR); BILIRUBIN,URINE NEGATIVE (NEGATIVE); BLOOD, URINE NEGATIVE Ery/uL (NEGATIVE); COLOR,URINE YELLOW (YELLOW); KETONES,URINE NEGATIVE (NEGATIVE); LEUKOCYTE ESTERASE ,URINE NEGATIVE (NEGATIVE); NITRITE, URINE NEGATIVE (NEGATIVE); PROTEIN,URINE NEGATIVE (NEGATIVE); UGLUCOSE NEGATIVE (NEGATIVE); UROBILINOGEN,URINE 0.2 EU/dL (0.2)
== END 2024-05-11 11:49 | disposition home or self-care (01) ==
LOC: ER 09:30
DX: N44.00 Torsion of testis, unspecified (principal); R11.2 Nausea with vomiting, unspecified; F17.200 Nicotine dependence, unspecified, uncomplicated; Z87.19 Personal history of other diseases of the digestive system
CPT/HCPCS: 99285; 96374; 96361; 96375; 76870; 85025; 80048; 83690; 80076; 81003; 36415; J2270; J2405; J7030